=== PATIENT | male | born 1955 | race Caucasian/White ===

== ENCOUNTER 2017-08-09 08:17 | Inpatient (IN) | payer OTHER ==
[~2017-08-09] VITALS: Ht 177.8 cm; Wt 72.1 kg
[2017-08-09] MEDS ORDERED: SODIUM CHLORIDE 0.9% 1000ML 1,000 ML IV STA (08:32)
[2017-08-09] MEDS ORDERED: HYDRALAZINE HCL 20 MG/ML VIAL IV STA (09:00)
--- NOTE | 2017-08-09 09:24 | Diagnostic Imaging Report ---
EXAMINATION: Head CT HISTORY: Altered mental status for the last 2 days, evaluate for stroke COMPARISON: None. TECHNIQUE: Multidetector axial images were obtained without contrast from the foramen magnum to the vertex . The images were reconstructed using brain and bone algorithms. Thin section brain images were reformatted into coronal and sagittal planes. Intravenous contrast: None. Motion/streaking artifact limits the evaluation of the skull base and posterior cranial fossa. FINDINGS: Parenchyma: 1. Few scattered white matter hypodensities, likely nonspecific chronic microvascular ischemic changes. Focal cortical encephalomalacia in the right middle/inferior frontal gyri, likely sequela from remote infarct. 2. No mass or hemorrhage. No CT evidence of acute territorial vascular insult. Extra-axial spaces:No abnormal density. No extra-axial fluid collections Brain volume: Normal for age. Ventricles: No hydrocephalus or displacement. Arteries: No density suggestive of thrombus. Dural sinuses: No abnormal density. Extra-axial spaces: No abnormal density. Foramen magnum: No mass, Chiari malformation, or basilar invagination. Sella: No obvious mass. Paranasal/mastoid sinuses: Hypo pneumatization and sclerosis with partial opacification of the left mastoids are cells, likely related to chronic inflammatory process. Minimal chronic decompression of the right lamina papyracea, likely sequela from remote trauma. Skull/Scalp: No lytic or blastic lesions. No fractures. IMPRESSION: 1. No acute intracranial hemorrhage or CT evidence of acute territorial cortical vascular insult. 2. Mild chronic microvascular ischemic changes. 3. Small chronic cortical infarct in the right frontal lobe. Signed by: Dr. Sydney Wheeler M.D. on 08/09/2017 9:21 AM
[2017-08-09 09:39] LABS: BASOPHILS # (AUTO) 0.2 (0.0-0.1); BASOPHILS % 2.1 % (0.0-1.0); EOSINOPHILS # (AUTO) 0.4 (0.0-0.4); EOSINOPHILS % 3.4 % (0.0-6.0); HEMATOCRIT 42.1 % (38.2-49.6); HEMOGLOBIN 15.2 g/dL (14.0-18.0); LYMPHOCYTES # (AUTO) 1.5 (1.0-3.2); LYMPHOCYTES % 13.3 % (18.0-39.1); MEAN CORPUSCULAR HEMOGLOBIN 35.1 pg (28-32); MEAN CORPUSCULAR HGB CONC 36.1 g/dL (31-35); MEAN CORPUSCULAR VOLUME 97.2 fL (81-99); MONOCYTES # (AUTO) 1.1 (0.2-0.8); MONOCYTES % 10.4 % (4.4-11.3); NEUTROPHILS # (AUTO) 7.6 (2.1-6.9); NEUTROPHILS % 69.6 % (38.7-80.0); PLATELET COUNT 246 x10e3/uL (140-360); RED BLOOD COUNT 4.33 x10e6/uL (4.3-5.7)
--- NOTE | 2017-08-09 09:47 | Diagnostic Imaging Report ---
EXAMINATION: CT of the cervical spine HISTORY: Altered mental status, evaluate for spine fractures. COMPARISON: None available TECHNIQUE: Multidetector helical axial images were obtained without contrast from the foramen magnum to T1. The images were reconstructed using bone and soft tissue algorithms and were viewed in axial, sagittal and coronal planes. FINDINGS: Alignment: Age indeterminate likely chronic grade 1 spondylolisthesis at C6-C7, perhaps sequela from remote trauma. Soft tissues: Dilatation of the right laryngeal ventricle and right piriform sinus with medialization of the right AE fold, may be related to vocal cord paralysis on the right side. Fullness of the left nasopharynx, correlation with physical examination and a nonemergent ENT evaluation is recommended. Vertebrae: Chronic anterior wedging of the T7 vertebral body with decreased vertebral body height anteriorly by approximately 20%, no posterior retropulsion or canal stenosis. Mild associated kyphotic malalignment. Degenerative changes: C1-C2: Normal. C2-C3: Normal. C3-C4: Disc osteophyte, uncovertebral and facet arthrosis. Mild right and moderate left foraminal stenoses. C4-C5: Disc osteophyte on the differential, uncovertebral and facet arthrosis. Severe left foraminal stenosis. C5-C6: Disc osteophyte complex formation, uncovertebral and facet arthrosis. Mild bilateral foraminal stenoses worse on the left. C6-C7: Mild symmetric disc bulge, left lateral interbody bridging osteophyte and prominent facet arthrosis on the left with probably chronic-healed fracture-subluxation, likely sequela from remote trauma. There is no associated canal or foraminal stenoses. C7-T1: Normal. IMPRESSION: 1. No acute fractures or dislocations. 2. Anterior wedging of the C7 vertebral body and changes in the left C6-C7 facet, likely the sequela from remote trauma as detailed above. Comparison to prior studies is recommended 3. Moderate to severe left foraminal stenoses at C3-C4 and C4-C5. 4. Partially visualized fullness of the left nasopharynx, a nonemergent ENT evaluation is recommended. Note: Acute postraumatic spinal cord, vascular or ligamentous injuries cannot adequately be assessed by CT. Signed by: Dr. Sydney Wheeler M.D. on 08/09/2017 9:44 AM
[2017-08-09 09:49] LABS: CLARITY,URINE CLEAR (CLEAR); COLOR,URINE YELLOW (YELLOW); KETONES,URINE 2+ (NEGATIVE); LEUKOCYTE ESTERASE ,URINE NEGATIVE (NEGATIVE); NITRITE,URINE NEGATIVE (NEGATIVE); PROTEIN,URINE DIPSTICK 1+ (NEGATIVE); URINE UROBILINOGEN 1 mg/dL (0.2 - 1)
[2017-08-09 09:50] LABS: BILIRUBIN,URINE 1+ (NEGATIVE)
[2017-08-09 09:53] LABS: INR 0.91; PROTHROMBIN TIME 11.5 seconds (11.9-14.5)
[2017-08-09 09:54] LABS: PARTIAL THROMBOPLASTIN TIME 30.3 seconds (23.8-35.5)
[2017-08-09 09:59] LABS: ALANINE AMINOTRANSFERASE 15 IU/L (0-55); ALBUMIN 4.6 g/dL (3.5-5.0); ALBUMIN/GLOBULIN RATIO 1.5 (0.8-2.0); ALKALINE PHOSPHATASE 57 IU/L (40-150); AMYLASE 40 U/L (25-125); ANION GAP 18.4 mmol/L (8-16); BLOOD UREA NITROGEN 9 mg/dL (7-26); BUN/CREATININE RATIO 9 (6-25); CALCIUM 9.7 mg/dL (8.4-10.2); CARBON DIOXIDE 23 mmol/L (22-29); CHLORIDE 89 mmol/L (98-107); CREATINE KINASE 151 IU/L (30-200); CREATININE, SERUM 0.98 mg/dL (0.72-1.25); EST GLOMERULAR FILTRATION RATE > 60 ML/MIN (60-); GLUCOSE 88 mg/dL (74-118); LIPASE 32 U/L (8-78); POTASSIUM 4.4 mmol/L (3.5-5.1); SODIUM 126 mmol/L (136-145)
[2017-08-09 10:16] LABS: BACTERIA,URINE FEW /HPF; EPITHELIAL CELLS,URINE FEW /LPF; HYALINE CASTS 0-1 (0-1); RBC,URINE 0-5 /HPF (0-5); WBC,URINE (MAN) 0-5 /HPF (0-5)
[2017-08-09] MEDS ORDERED: LORAZEPAM INJ 2 MG/ML VIAL IV ONE (10:45)
[2017-08-09 11:02] LABS: AMPHETAMINES SCREEN,URINE NEGATIVE (NEGATIVE); BENZODIAZEPINES SCREEN,URINE NEGATIVE (NEGATIVE); PHENCYCLIDINE SCREEN,URINE NEGATIVE (NEGATIVE)
[2017-08-09] MEDS ORDERED: LORAZEPAM INJ 2 MG/ML VIAL IM SCH (12:00)
[2017-08-09] MEDS ORDERED: ONDANSETRON HCL INJ 2 MG/ML VIAL IV PRN (12:00)
[2017-08-09] MEDS: SODIUM CHLORIDE 0.9% 1000ML 1,000 ML IV SCH ×2 (12:29→22:37)
--- NOTE | 2017-08-09 14:01 | Diagnostic Imaging Report ---
EXAMINATION: MRI of the brain without contrast. HISTORY: Evaluate for acute stroke COMPARISON: Head CT on 08/09/2017 TECHNIQUE: Sagittal T2; axial DWI, T2, FLAIR, T1-IR, T2 gradient echo; coronal FLAIR. IMAGE QUALITY: Motion artifact limits evaluation of most of the sequences.. FINDINGS: Parenchyma: 1. Multiple peripheral cortico-subcortical areas of restricted diffusion in the bilateral middle frontal gyri and left frontal centrum semiovale, consistent with acute ischemic cortical watershed infarcts. 2. Chronic cortical infarct in the right middle frontal gyrus. 3. Scatter and mildly confluent periventricular white matter T2 and FLAIR hyperintense foci, most likely nonspecific chronic microvascular ischemic changes. 4. No mass or hemorrhage. Skull: Unremarkable. Vessels: Expected flow voids present in the major arteries and dural sinuses. Extra-axial spaces: No abnormal signal intensity or mass effect. Brain volume: Within normal limits for age. Ventricles: No hydrocephalus or displacement. Foramen magnum: Unremarkable. Sella: Unremarkable. Paranasal / mastoid sinuses: Opacification of the left mastoid air cells and middle ear, likely effusion/chronic inflammatory process is again noted. IMPRESSION: 1. Multiple acute small cortical infarcts in the bilateral frontal lobes without hemorrhagic conversion or significant mass effect. No midline shift. 2. Chronic right frontal infarct. 3. Mild chronic microvascular ischemic changes. Signed by: Dr. Sydney Wheeler M.D. on 08/09/2017 1:58 PM
[2017-08-09 14:06] VITALS: BP 134/70
[2017-08-09] MEDS ORDERED: HYDRALAZINE HCL 20 MG/ML VIAL IV PRN (15:30)
[2017-08-09] MEDS ORDERED: SYMBICORT 16010.2 GM (16:24)
[2017-08-09] MEDS ORDERED: LOSARTAN POTAS100 MG PO (16:24)
[2017-08-09 16:32] VITALS: BP 146/78
[2017-08-09 16:44] VITALS: BP 146/78
[2017-08-09 20:00] VITALS: BP 150/75
[2017-08-10] VITALS: BP 157/73
[2017-08-10] MEDS ORDERED: LORAZEPAM INJ 2 MG/ML VIAL IM SCH
[2017-08-10 00:29] LABS: BASOPHILS # (AUTO) 0.2 (0.0-0.1); BASOPHILS % 2.3 % (0.0-1.0); EOSINOPHILS # (AUTO) 0.5 (0.0-0.4); EOSINOPHILS % 4.9 % (0.0-6.0); HEMATOCRIT 36.5 % (38.2-49.6); HEMOGLOBIN 13.6 g/dL (14.0-18.0); LYMPHOCYTES # (AUTO) 1.9 (1.0-3.2); LYMPHOCYTES % 19.5 % (18.0-39.1); MEAN CORPUSCULAR HEMOGLOBIN 35.6 pg (28-32); MEAN CORPUSCULAR HGB CONC 37.3 g/dL (31-35); MEAN CORPUSCULAR VOLUME 95.5 fL (81-99); MONOCYTES % 10.6 % (4.4-11.3); NEUTROPHILS % 61.9 % (38.7-80.0); PLATELET COUNT 219 x10e3/uL (140-360); RED BLOOD COUNT 3.82 x10e6/uL (4.3-5.7); RED CELL DISTRIBUTION WIDTH 12.9 % (11.7-14.4)
[2017-08-10 00:43] LABS: ANION GAP 13.8 mmol/L (8-16); BLOOD UREA NITROGEN 13 mg/dL (7-26); BUN/CREATININE RATIO 15 (6-25); CALCIUM 8.9 mg/dL (8.4-10.2); CARBON DIOXIDE 21 mmol/L (22-29); CHLORIDE 99 mmol/L (98-107); CHOLESTEROL 137 MD/DL (0-199); CREATININE, SERUM 0.84 mg/dL (0.72-1.25); EST GLOMERULAR FILTRATION RATE > 60 ML/MIN (60-); GLUCOSE 91 mg/dL (74-118); HDL CHOLESTEROL 46 MG/DL (40-60); LDL CHOLESTEROL 75 MG/DL (60-130); POTASSIUM 3.8 mmol/L (3.5-5.1); SODIUM 130 mmol/L (136-145); TRIGLYCERIDES 78 MG/DL (0-149)
[2017-08-10 01:03] LABS: FREE T4 (FREE THYROXINE) 0.82 ng/dL (0.9-1.8); THYROID STIMULATING HORMONE 2.169 uIU/mL (0.350-4.940)
[2017-08-10 01:05] LABS: B-TYPE NATRIURETIC PEPTIDE2 127.5 pg/mL (0-100)
[2017-08-10 01:40] LABS: BLOOD UREA NITROGEN 13 mg/dL (7-26); GLUCOSE 91 mg/dL (74-118); OSMOLALITY,SERUM 260 mOsm/kg (278-305); SODIUM 130 mmol/L (136-145)
[2017-08-10 04:00] VITALS: BP 184/97
[2017-08-10] MEDS: SODIUM CHLORIDE 0.9% 1000ML 1,000 ML IV SCH (04:15)
[2017-08-10 06:09] LABS: BASOPHILS # (AUTO) 0.2 (0.0-0.1); BASOPHILS % 2.9 % (0.0-1.0); EOSINOPHILS # (AUTO) 0.5 (0.0-0.4); EOSINOPHILS % 5.8 % (0.0-6.0); HEMATOCRIT 37.1 % (38.2-49.6); HEMOGLOBIN 13.5 g/dL (14.0-18.0); LYMPHOCYTES # (AUTO) 1.7 (1.0-3.2); LYMPHOCYTES % 20.4 % (18.0-39.1); MEAN CORPUSCULAR HEMOGLOBIN 35.3 pg (28-32); MEAN CORPUSCULAR HGB CONC 36.4 g/dL (31-35); MEAN CORPUSCULAR VOLUME 97.1 fL (81-99); MONOCYTES # (AUTO) 0.9 (0.2-0.8); MONOCYTES % 10.9 % (4.4-11.3); NEUTROPHILS # (AUTO) 4.9 (2.1-6.9); NEUTROPHILS % 59.2 % (38.7-80.0); PLATELET COUNT 212 x10e3/uL (140-360); RED BLOOD COUNT 3.82 x10e6/uL (4.3-5.7)
[2017-08-10 06:28] LABS: ALANINE AMINOTRANSFERASE 12 IU/L (0-55); ALBUMIN 3.7 g/dL (3.5-5.0); ALBUMIN/GLOBULIN RATIO 1.5 (0.8-2.0); ALKALINE PHOSPHATASE 45 IU/L (40-150); ANION GAP 12.8 mmol/L (8-16); BLOOD UREA NITROGEN 10 mg/dL (7-26); BUN/CREATININE RATIO 12 (6-25); CALCIUM 8.9 mg/dL (8.4-10.2); CARBON DIOXIDE 23 mmol/L (22-29); CHLORIDE 101 mmol/L (98-107); CREATININE, SERUM 0.81 mg/dL (0.72-1.25); EST GLOMERULAR FILTRATION RATE > 60 ML/MIN (60-); GLUCOSE 90 mg/dL (74-118); POTASSIUM 3.8 mmol/L (3.5-5.1); SODIUM 133 mmol/L (136-145)
[2017-08-10] MEDS: ASPIRIN 325 MG TAB EC PO SCH (08:00)
[2017-08-10] MEDS: FAMOTIDINE 20 MG TAB PO SCH ×2 (08:00→18:37)
[2017-08-10 08:53] VITALS: BP 175/102
--- NOTE | 2017-08-10 09:18 | Consultation ---
DATE OF CONSULTATION: August 10, 2017, at 8:30 in the morning NEUROLOGICAL CONSULTATION ATTENDING PHYSICIAN: Dr. Daniel REASON FOR CONSULTATION: Stroke. This is a 62-year-old male who apparently, according to the chart as no family member is present, has been having some trouble ambulating and some trouble with speech for a little while. They brought him to the emergency room with the possibility of a diagnosis of a stroke. The patient has been admitted with confusion and slurred speech. PAST HISTORY: Hypertension. SURGERY: Appendectomy. ALLERGIES: NONE KNOWN. FAMILY AND SOCIAL HISTORY: Parents are . He has only a brother. He lives alone. He is not . He smokes. He says he drinks 3 beers a day. REVIEW OF SYSTEMS: All 12 steps negative except as described above. GENERAL PHYSICAL EXAMINATION VITAL SIGNS: Blood pressure 184/97, pulse 76, temperature 96.5. LUNGS: Clear to auscultation. HEART: Regular sinus rhythm. No murmur. ABDOMEN: Soft and nontender. No organomegaly. MUSCULOSKELETAL: Lower extremities have no edema. There is no cyanosis and no clubbing. NEUROLOGIC EXAMINATION MENTAL STATUS: He is sitting, alert. His speech is very dysarthric. He is disoriented times 3. He knows he is in the hospital. He does not know the name. He says he lives in [place], but he does not give me the address. CRANIAL NERVES: Pupils are small with sluggish reaction. The extraocular movements are full. Visual samuel are normal. No facial weakness. Palatal movement is normal. MOTOR POWER: He moves all 4 extremities symmetrically. No evidence of weakness in the proximal or distal muscles. PLANTAR STIMULATION: Down bilaterally. DEEP TENDON REFLEXES: Triceps, biceps and radials are 1+. Knee jerks are 1+. Ankle jerks are absent. GAIT: A little bit broad based and unsteady. LABORATORY WORKUP: CBC shows a white count of 8250 with a hemoglobin of 13.5, hematocrit 37.1, platelets 212,000. Chemistry: Sodium, potassium, chloride were within the normal range. BUN 10, creatinine 0.82, estimated GFR greater than 60. Liver enzymes are normal. Toxicology is negative. Alcohol is less than 10. Influenza types A, B, and Ag negative. Urinalysis: Presence of protein 1+, ketones 2+, WBCs 0-5, bacteria few. IMAGING: MRI of the brain without contrast showed multiple small cortical infarcts of both frontal areas. No evidence of mass effect. No evidence of bleeding. Cavities are normal size. IMPRESSION 1. Cortical infarction in both frontal areas. 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 The patient has been scheduled for echocardiogram and carotid Doppler, and these reports are pending. 2. Hypertension. RECOMMENDATIONS: PT. Recommendation for speech therapy. Continue with aspirin. Job#: [id number]
[2017-08-10] MEDS: LOSARTAN POTASSIUM 100 MG TAB PO SCH (10:30)
[2017-08-10 10:33] LABS: EOSINOPHILS % (MANUAL) 4 % (0-7); LYMPHOCYTES % (MANUAL) 16 % (19-48); MONOCYTES % (MANUAL) 9 % (3.4-9.0); NEUTROPHILS % (MANUAL) 71 % (40-74); PLATELET ESTIMATE ADEQUATE; PLATELET MORPHOLOGY COMMENT FEW LARGE; RBC MORPHOLOGY COMMENT NORMAL
[2017-08-10 12:00] VITALS: BP 188/92
[2017-08-10] MEDS: ALBUTEROL/IPRATROPIUM 3 ML NEB NEB SCH ×2 (12:40→20:00)
[2017-08-10] MEDS: ACETAMINOPHEN 325 MG TAB PO PRN (15:16)
[2017-08-10] MEDS: LORAZEPAM INJ 2 MG/ML VIAL IM SCH (15:55)
[2017-08-10 16:45] VITALS: BP 154/88
[2017-08-10 20:00] VITALS: BP 192/98
[2017-08-10] MEDS: ATORVASTATIN 20 MG TAB PO SCH (21:42)
[2017-08-11] VITALS (7 sets, daily range): BP systolic 110–196; BP diastolic 68–100
[2017-08-11] MEDS: ALBUTEROL/IPRATROPIUM 3 ML NEB NEB SCH ×4 (00:45→20:30)
[2017-08-11] MEDS: LORAZEPAM INJ 2 MG/ML VIAL IM SCH (03:14)
[2017-08-11] MEDS: CLONIDINE HCL 0.1 MG TAB PO PRN ×2 (04:27→12:50)
[2017-08-11 06:06] LABS: BASOPHILS # (AUTO) 0.2 (0.0-0.1); BASOPHILS % 2.5 % (0.0-1.0); EOSINOPHILS # (AUTO) 0.5 (0.0-0.4); EOSINOPHILS % 5.5 % (0.0-6.0); HEMATOCRIT 36.2 % (38.2-49.6); HEMOGLOBIN 12.9 g/dL (14.0-18.0); LYMPHOCYTES # (AUTO) 1.7 (1.0-3.2); LYMPHOCYTES % 20.4 % (18.0-39.1); MEAN CORPUSCULAR HEMOGLOBIN 35.6 pg (28-32); MEAN CORPUSCULAR HGB CONC 35.6 g/dL (31-35); MONOCYTES # (AUTO) 0.8 (0.2-0.8); MONOCYTES % 9.9 % (4.4-11.3); NEUTROPHILS # (AUTO) 5.2 (2.1-6.9); NEUTROPHILS % 60.9 % (38.7-80.0); PLATELET COUNT 202 x10e3/uL (140-360); RED BLOOD COUNT 3.62 x10e6/uL (4.3-5.7); RED CELL DISTRIBUTION WIDTH 13.1 % (11.7-14.4)
[2017-08-11 06:33] LABS: ANION GAP 11.9 mmol/L (8-16); BLOOD UREA NITROGEN 8 mg/dL (7-26); BUN/CREATININE RATIO 9 (6-25); CALCIUM 9.2 mg/dL (8.4-10.2); CARBON DIOXIDE 26 mmol/L (22-29); CHLORIDE 100 mmol/L (98-107); CREATININE, SERUM 0.87 mg/dL (0.72-1.25); EST GLOMERULAR FILTRATION RATE > 60 ML/MIN (60-); GLUCOSE 111 mg/dL (74-118); POTASSIUM 3.9 mmol/L (3.5-5.1); SODIUM 134 mmol/L (136-145)
[2017-08-11] MEDS ORDERED: LIPITOR20 MG PO (06:56)
[2017-08-11] MEDS ORDERED: NIFEDIPINE ER30 M1 PO (06:56)
[2017-08-11] MEDS ORDERED: CATAPRES0.1 MG PO (06:56)
[2017-08-11] MEDS ORDERED: ASPIRIN ENTERI325 MG PO (06:56)
[2017-08-11 07:45] LABS: ANISOCYTOSIS SLIGHT; BLAST CELLS % MANUAL 1; EOSINOPHILS % (MANUAL) 7 % (0-7); HYPOCHROMASIA SLIGHT; LYMPHOCYTES % (MANUAL) 13 % (19-48); MONOCYTES % (MANUAL) 10 % (3.4-9.0); NEUTROPHILS % (MANUAL) 62 % (40-74); PLATELET ESTIMATE ADEQUATE; PLATELET MORPHOLOGY COMMENT NORMAL; RBC MORPHOLOGY COMMENT NORMAL
[2017-08-11] MEDS: NIFEDIPINE CR 30 MG TAB PO SCH (08:50)
[2017-08-11] MEDS: FAMOTIDINE 20 MG TAB PO SCH ×2 (08:50→17:26)
[2017-08-11] MEDS: ASPIRIN 325 MG TAB EC PO SCH (08:50)
[2017-08-11] MEDS: LOSARTAN POTASSIUM 100 MG TAB PO SCH (08:50)
[2017-08-11] MEDS: BUDESONIDE/FORMOTEROL 160/4.5MCG INHALER INH SCH ×2 (09:00→20:30)
[2017-08-11] MEDS ORDERED: HALOPERIDOL LACTATE 5 MG/ML VIAL IM PRN (15:30)
--- NOTE | 2017-08-11 15:50 | Consultation ---
DATE OF CONSULTATION: August 11, 2017 PSYCHIATRIC CONSULTATION REASON FOR CONSULTATION: Evaluate the patient's agitation. HISTORY OF PRESENT ILLNESS: Patient is a 62-year-old male admitted to the hospital for weakness. Psychiatric consultation is called to evaluate the patient's psychosis. As per medical record, the patient has a history of hypertension. Family members brought the patient to the ER for weakness and possible diagnosis of stroke. The patient was admitted for confusion and slurred speech. CT scan shows mild chronic cortical infarction. Upon evaluation today, the patient was found to be in his room sitting in a chair with his sitter nearby. He is alert, awake and oriented to self. He is confused. Does not know where he is. He is calm at this time. He denies any depression, anxiety. He states feeling pretty good. He denies any hallucinations. He denies any feelings of hopeless or helplessness. He denies any appetite issues. He complains of slurred speech. As per sitter, the patient has been restless and trying to get out of the room. He has not been combative. As per nursing staff, the patient has been intermittently restless. The patient is getting Ativan 1 mg IM q.12 h. scheduled. PAST PSYCHIATRIC HISTORY: As per medical record, the patient does not appear to have any past psychiatric history. He denies suicide attempts. He denies alcohol and drug use. FAMILY HISTORY: The patient denies. SOCIAL HISTORY: The patient states he lives alone. MENTAL STATUS EXAMINATION GENERAL: The patient is an elderly male. He is alert, awake and oriented to self. He is confused. Intermittently restless. Mood is anxious. Affect is blunt. Psychomotor state is restless. Thought process is confused. Thought content is not elicited for paranoia or delusional thinking. Denies any suicidal or homicidal ideation. Insight and judgment are poor. Memory appears to be grossly impaired. CURRENT MEDICATIONS: Albuterol, clonidine, budesonide, nifedipine, losartan, famotidine, aspirin, Ativan 1 mg IM q.12 h. scheduled, atorvastatin, acetaminophen, Zofran p.r.n. IV. CURRENT LABS: WBC 8.48, RBC 3.62, hemoglobin 12.9, hematocrit 36.2, and platelets 202,000. Chemistry: Sodium 134, potassium 3.9, chloride 100, CO2 26, BUN 8, creatinine 0.87. ASSESSMENT: Unspecified psychosis. PLAN: Adjust Ativan 1 mg IM q.12 h. Add Ativan 0.5 mg p.o. q.12 h. Add Ativan 0.5 mg p.o. q.6 h. p.r.n. Add Seroquel 25 mg p.o. q.6 h. p.r.n. Add Haldol 1 mg IM q.6 h. p.r.n. Monitor for agitation and mood. Thank you for this consultation. DICTATED BY RADHA PÉREZ Job#: [id number] RI
[2017-08-11] MEDS ORDERED: HYDROCHLOROTHIAZIDE 25 MG TAB PO SCH (16:45)
[2017-08-11] MEDS: LORAZEPAM 0.5 MG TAB PO SCH (17:26)
[2017-08-11] MEDS: LISINOPRIL 10 MG TAB PO SCH (17:26)
[2017-08-11] MEDS: ACETAMINOPHEN 325 MG TAB PO PRN (17:28)
[2017-08-11] MEDS ORDERED: SODIUM CHLORIDE 0.9% 50ML 50 ML ONE (17:32)
[2017-08-11] MEDS ORDERED: IOPAMIDOL 370 MG/ML 200 ML INFUS..BTL INJ ONE (17:32)
--- NOTE | 2017-08-11 21:28 | Diagnostic Imaging Report ---
History: Carotid stenosis Comparison studies:Carotid Doppler 08/09/2017 Technique: Axial images were obtained from the thoracic inlet. Coronal and sagittal images reconstructed from the axial data. Intravenous contrast: 100 cc of Omnipaque 300. Findings: Percentage of stenosis will be based on the NASCET criteria. Aortic arch and major vessels: Patent. Atherosclerotic calcifications results in mild stenosis of the distal arch. Calcified and noncalcified plaque at the left subclavian artery origin results in moderate stenosis. Common carotid arteries: Patent. Nonstenotic atherosclerotic calcifications. Right internal carotid artery: Occluded with calcified and noncalcified plaque, distal reconstitution of the ophthalmic internal carotid artery and [place] by the posterior communicating artery. Left internal carotid artery: Occluded with calcified and noncalcified plaque, distal reconstitution of the ophthalmic internal carotid artery and [place] by the posterior communicating artery Right vertebral artery: Patent. Nonstenotic atherosclerotic calcifications. Left vertebral artery: Patent. Nonstenotic atherosclerotic calcifications. Bilateral apical paraseptal emphysematous changes. 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 Moderate stenosis of the left subclavian artery origin. Nonstenotic atherosclerotic calcifications of the remaining vessels Signed by: DR Sammy Recinos M.D. on 08/11/2017 10:45 PM
[2017-08-11] MEDS: ATORVASTATIN 20 MG TAB PO SCH (21:42)
[2017-08-11] MEDS: QUETIAPINE FUMARATE 25 MG TAB PO PRN (23:20)
[2017-08-12] VITALS: BP_SYST 129; BP_SYST 136; BP_DIAS 80; BP_DIAS 92
[2017-08-12] MEDS: ALBUTEROL/IPRATROPIUM 3 ML NEB NEB SCH ×4 (00:30→20:30)
[2017-08-12] MEDS: LORAZEPAM 0.5 MG TAB PO PRN (00:42)
[2017-08-12 01:54] VITALS: BP 129/92
[2017-08-12 03:30] LABS: BASOPHILS # (AUTO) 0.3 (0.0-0.1); EOSINOPHILS # (AUTO) 0.7 (0.0-0.4); EOSINOPHILS % 8.1 % (0.0-6.0); HEMATOCRIT 35.2 % (38.2-49.6); HEMOGLOBIN 13.1 g/dL (14.0-18.0); LYMPHOCYTES # (AUTO) 1.3 (1.0-3.2); LYMPHOCYTES % 15.2 % (18.0-39.1); MEAN CORPUSCULAR HEMOGLOBIN 35.4 pg (28-32); MEAN CORPUSCULAR HGB CONC 37.2 g/dL (31-35); MEAN CORPUSCULAR VOLUME 95.1 fL (81-99); MONOCYTES # (AUTO) 0.7 (0.2-0.8); MONOCYTES % 8.4 % (4.4-11.3); NEUTROPHILS # (AUTO) 5.4 (2.1-6.9); NEUTROPHILS % 64.7 % (38.7-80.0); PLATELET COUNT 196 x10e3/uL (140-360)
[2017-08-12 03:44] LABS: ANION GAP 11.8 mmol/L (8-16); BLOOD UREA NITROGEN 8 mg/dL (7-26); BUN/CREATININE RATIO 8 (6-25); CALCIUM 9.5 mg/dL (8.4-10.2); CARBON DIOXIDE 23 mmol/L (22-29); CHLORIDE 96 mmol/L (98-107); EST GLOMERULAR FILTRATION RATE > 60 ML/MIN (60-); GLUCOSE 109 mg/dL (74-118); MAGNESIUM 1.7 MG/DL (1.3-2.1); POTASSIUM 3.8 mmol/L (3.5-5.1)
[2017-08-12 04:05] LABS: SODIUM 127 mmol/L (136-145)
[2017-08-12 04:10] VITALS: BP 122/84
[2017-08-12] MEDS: LORAZEPAM INJ 2 MG/ML VIAL IM PRN (05:57)
[2017-08-12] MEDS: BUDESONIDE/FORMOTEROL 160/4.5MCG INHALER INH SCH ×2 (07:00→19:00)
[2017-08-12 08:46] VITALS: BP 136/88
[2017-08-12] MEDS: FAMOTIDINE 20 MG TAB PO SCH ×2 (08:59→16:54)
[2017-08-12] MEDS: ASPIRIN 325 MG TAB EC PO SCH (08:59)
[2017-08-12] MEDS: LISINOPRIL 10 MG TAB PO SCH (08:59)
[2017-08-12] MEDS: LORAZEPAM 0.5 MG TAB PO SCH ×2 (08:59→16:54)
[2017-08-12] MEDS: LOSARTAN POTASSIUM 100 MG TAB PO SCH (08:59)
[2017-08-12] MEDS: NIFEDIPINE CR 30 MG TAB PO SCH (09:01)
--- NOTE | 2017-08-12 10:21 | Progress Note ---
DATE: August 12, 2017 PSYCHIATRIC PROGRESS NOTE The patient is in the room sitting in the chair. He is calm at this time and pleasant and cooperative. Speech is somewhat garbled. He has a sitter nearby. The patient apparently received multiple p.r.n. IM medications last night. He was trying to get out of bed. He is not sleeping as per nursing staff. He is medically cleared. Still has some cardiology issues that need to be resolved. The plan is from the nursing staff is that he will be discharged to assisted facility. Daytime nursing staff reported the patient is doing very well and not combative. 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 PLAN: Add Seroquel 25 mg p.o. at bedtime. Continue with Seroquel 25 mg p.o. q.6 h. p.r.n. Continue with Haldol p.r.n. IM. Continue with Ativan 0.5 mg p.o. b.i.d. Continue with Ativan p.r.n. IM. Monitor for agitation. DICTATED BY RADHA PÉREZ Job#: [id number] RAGINI
[2017-08-12 20:00] VITALS: BP 136/80
[2017-08-12] MEDS: QUETIAPINE FUMARATE 25 MG TAB PO SCH (20:17)
[2017-08-12] MEDS: ATORVASTATIN 20 MG TAB PO SCH (20:17)
[2017-08-12 21:05] VITALS: BP 136/80
[2017-08-13] VITALS (8 sets, daily range): BP systolic 112–156; BP diastolic 65–98
[2017-08-13] MEDS: ALBUTEROL/IPRATROPIUM 3 ML NEB NEB SCH ×4 (01:00→19:00)
[2017-08-13] MEDS: QUETIAPINE FUMARATE 25 MG TAB PO PRN (02:38)
[2017-08-13 03:16] LABS: BASOPHILS # (AUTO) 0.2 (0.0-0.1); BASOPHILS % 2.8 % (0.0-1.0); EOSINOPHILS # (AUTO) 0.6 (0.0-0.4); EOSINOPHILS % 7.9 % (0.0-6.0); HEMATOCRIT 37.5 % (38.2-49.6); HEMOGLOBIN 13.6 g/dL (14.0-18.0); LYMPHOCYTES # (AUTO) 1.8 (1.0-3.2); LYMPHOCYTES % 21.7 % (18.0-39.1); MEAN CORPUSCULAR HGB CONC 36.3 g/dL (31-35); MEAN CORPUSCULAR VOLUME 96.4 fL (81-99); MONOCYTES # (AUTO) 1.1 (0.2-0.8); NEUTROPHILS # (AUTO) 4.4 (2.1-6.9); PLATELET COUNT 209 x10e3/uL (140-360); RED BLOOD COUNT 3.89 x10e6/uL (4.3-5.7)
[2017-08-13 03:34] LABS: ANION GAP 12.7 mmol/L (8-16); BLOOD UREA NITROGEN 10 mg/dL (7-26); BUN/CREATININE RATIO 10 (6-25); CALCIUM 9.6 mg/dL (8.4-10.2); CARBON DIOXIDE 23 mmol/L (22-29); CHLORIDE 97 mmol/L (98-107); CREATININE, SERUM 1.03 mg/dL (0.72-1.25); EST GLOMERULAR FILTRATION RATE > 60 ML/MIN (60-); GLUCOSE 102 mg/dL (74-118); MAGNESIUM 1.9 MG/DL (1.3-2.1); POTASSIUM 3.7 mmol/L (3.5-5.1); SODIUM 129 mmol/L (136-145)
[2017-08-13] MEDS: FAMOTIDINE 20 MG TAB PO SCH ×2 (07:30→17:04)
[2017-08-13] MEDS: BUDESONIDE/FORMOTEROL 160/4.5MCG INHALER INH SCH ×2 (07:30→19:00)
[2017-08-13] MEDS: LORAZEPAM 0.5 MG TAB PO SCH ×2 (09:31→17:04)
[2017-08-13] MEDS: DOCUSATE SODIUM 100 MG CAP PO SCH ×2 (09:31→17:04)
[2017-08-13] MEDS: LISINOPRIL 10 MG TAB PO SCH (09:31)
[2017-08-13] MEDS: LOSARTAN POTASSIUM 100 MG TAB PO SCH (09:31)
[2017-08-13] MEDS: NIFEDIPINE CR 30 MG TAB PO SCH (09:31)
[2017-08-13] MEDS: ASPIRIN 325 MG TAB EC PO SCH (09:31)
[2017-08-13] MEDS: POLYETHYLENE GLYCOL 3350 17 GM PACK PO SCH ×2 (09:32→17:04)
[2017-08-13] MEDS: ENOXAPARIN SOD INJ 40 MG/0.4 ML SYR SC SCH (17:04)
[2017-08-13] MEDS: ATORVASTATIN 20 MG TAB PO SCH (20:17)
[2017-08-13] MEDS: QUETIAPINE FUMARATE 25 MG TAB PO SCH (20:17)
[2017-08-14] VITALS (7 sets, daily range): BP systolic 117–172; BP diastolic 73–99
[2017-08-14] MEDS: ALBUTEROL/IPRATROPIUM 3 ML NEB NEB SCH ×4 (01:00→19:00)
[2017-08-14 05:02] LABS: BASOPHILS # (AUTO) 0.3 (0.0-0.1); BASOPHILS % 3.7 % (0.0-1.0); EOSINOPHILS # (AUTO) 0.6 (0.0-0.4); EOSINOPHILS % 7.8 % (0.0-6.0); HEMATOCRIT 37.3 % (38.2-49.6); HEMOGLOBIN 13.5 g/dL (14.0-18.0); LYMPHOCYTES # (AUTO) 1.7 (1.0-3.2); LYMPHOCYTES % 20.7 % (18.0-39.1); MEAN CORPUSCULAR HEMOGLOBIN 35.2 pg (28-32); MEAN CORPUSCULAR HGB CONC 36.2 g/dL (31-35); MEAN CORPUSCULAR VOLUME 97.4 fL (81-99); MONOCYTES # (AUTO) 1.3 (0.2-0.8); MONOCYTES % 15.4 % (4.4-11.3); NEUTROPHILS # (AUTO) 4.2 (2.1-6.9); NEUTROPHILS % 51.2 % (38.7-80.0); PLATELET COUNT 226 x10e3/uL (140-360); RED BLOOD COUNT 3.83 x10e6/uL (4.3-5.7)
[2017-08-14 05:41] LABS: ANION GAP 14.2 mmol/L (8-16); BLOOD UREA NITROGEN 12 mg/dL (7-26); BUN/CREATININE RATIO 11 (6-25); CALCIUM 9.6 mg/dL (8.4-10.2); CARBON DIOXIDE 24 mmol/L (22-29); CHLORIDE 97 mmol/L (98-107); CREATININE, SERUM 1.13 mg/dL (0.72-1.25); EST GLOMERULAR FILTRATION RATE > 60 ML/MIN (60-); GLUCOSE 95 mg/dL (74-118); MAGNESIUM 2.1 MG/DL (1.3-2.1); POTASSIUM 4.2 mmol/L (3.5-5.1); SODIUM 131 mmol/L (136-145)
[2017-08-14] MEDS: BUDESONIDE/FORMOTEROL 160/4.5MCG INHALER INH SCH ×2 (07:00→19:00)
[2017-08-14 07:25] LABS: EOSINOPHILS % (MANUAL) 6 % (0-7); LYMPHOCYTES % (MANUAL) 21 % (19-48); MONOCYTES % (MANUAL) 9 % (3.4-9.0); NEUTROPHILS % (MANUAL) 60 % (40-74)
[2017-08-14 07:27] LABS: ANISOCYTOSIS SLIGHT; PLATELET ESTIMATE ADEQUATE; PLATELET MORPHOLOGY COMMENT NORMAL; RBC MORPHOLOGY COMMENT NORMAL
[2017-08-14] MEDS: FAMOTIDINE 20 MG TAB PO SCH ×2 (07:30→16:40)
[2017-08-14] MEDS: ASPIRIN 325 MG TAB EC PO SCH (08:51)
[2017-08-14] MEDS: DOCUSATE SODIUM 100 MG CAP PO SCH ×2 (08:51→16:40)
[2017-08-14] MEDS: LORAZEPAM 0.5 MG TAB PO SCH ×2 (08:51→16:40)
[2017-08-14] MEDS: LOSARTAN POTASSIUM 100 MG TAB PO SCH (08:51)
[2017-08-14] MEDS: NIFEDIPINE CR 30 MG TAB PO SCH (08:51)
[2017-08-14] MEDS: POLYETHYLENE GLYCOL 3350 17 GM PACK PO SCH ×2 (08:51→16:40)
[2017-08-14] MEDS: LISINOPRIL 10 MG TAB PO SCH (08:51)
--- NOTE | 2017-08-14 16:06 | Diagnostic Imaging Report ---
PROCEDURE:US GUIDANCE FOR VASCULAR ACCESS COMPARISON:None. INDICATIONS:Not provided. FINDINGS:Ultrasound evaluation of potential access sites was performed. After successfully identifying a patent vessel, US guidance was used to puncture the vein. A permanent recording was created for the patient record. CONCLUSION:Successful IV access by Ultrasound guidance. Hussein Mckinney M.D. Dictated by: Hussein Mckinney M.D. on 08/14/2017 at 16:11 Electronically approved by: Hussein Mckinney M.D. on 08/14/2017 at 16:11
[2017-08-14] MEDS: ENOXAPARIN SOD INJ 40 MG/0.4 ML SYR SC SCH (16:40)
[2017-08-14] MEDS: ATORVASTATIN 20 MG TAB PO SCH (20:18)
[2017-08-14] MEDS: LORAZEPAM 0.5 MG TAB PO PRN (20:18)
[2017-08-14] MEDS: QUETIAPINE FUMARATE 25 MG TAB PO SCH (20:18)
[2017-08-15] MEDS: CLONIDINE HCL 0.1 MG TAB PO PRN (00:40)
[2017-08-15] MEDS: ALBUTEROL/IPRATROPIUM 3 ML NEB NEB SCH ×4 (01:00→19:40)
[2017-08-15 04:00] VITALS: BP 112/81
[2017-08-15 04:48] LABS: BASOPHILS # (AUTO) 0.3 (0.0-0.1); BASOPHILS % 3.9 % (0.0-1.0); EOSINOPHILS # (AUTO) 0.7 (0.0-0.4); EOSINOPHILS % 8.3 % (0.0-6.0); LYMPHOCYTES % 23.5 % (18.0-39.1); MEAN CORPUSCULAR HEMOGLOBIN 35.4 pg (28-32); MEAN CORPUSCULAR HGB CONC 36.1 g/dL (31-35); MEAN CORPUSCULAR VOLUME 98.1 fL (81-99); MONOCYTES # (AUTO) 1.2 (0.2-0.8); MONOCYTES % 14.7 % (4.4-11.3); NEUTROPHILS # (AUTO) 4.1 (2.1-6.9); PLATELET COUNT 218 x10e3/uL (140-360); RED BLOOD COUNT 3.67 x10e6/uL (4.3-5.7); RED CELL DISTRIBUTION WIDTH 12.8 % (11.7-14.4)
[2017-08-15 05:07] LABS: ANION GAP 13.5 mmol/L (8-16); CALCIUM 9.2 mg/dL (8.4-10.2); CREATININE, SERUM 1.26 mg/dL (0.72-1.25); MAGNESIUM 1.8 MG/DL (1.3-2.1); POTASSIUM 4.5 mmol/L (3.5-5.1)
[2017-08-15 06:06] LABS: ANISOCYTOSIS SLIGHT; BLAST CELLS % MANUAL 1; EOSINOPHILS % (MANUAL) 9 % (0-7); LYMPHOCYTES % (MANUAL) 32 % (19-48); MONOCYTES % (MANUAL) 14 % (3.4-9.0); NEUTROPHILS % (MANUAL) 42 % (40-74); PLATELET ESTIMATE ADEQUATE; PLATELET MORPHOLOGY COMMENT FEW LARGE; RBC MORPHOLOGY COMMENT NORMAL
[2017-08-15] MEDS: BUDESONIDE/FORMOTEROL 160/4.5MCG INHALER INH SCH ×2 (07:00→19:40)
[2017-08-15 08:45] VITALS: BP 146/80
[2017-08-15] MEDS: POLYETHYLENE GLYCOL 3350 17 GM PACK PO SCH ×2 (09:00→18:13)
[2017-08-15 09:02] VITALS: BP 146/80
[2017-08-15] MEDS: DOCUSATE SODIUM 100 MG CAP PO SCH ×2 (10:06→18:13)
[2017-08-15] MEDS: LORAZEPAM 0.5 MG TAB PO SCH ×2 (10:06→18:13)
[2017-08-15] MEDS: FAMOTIDINE 20 MG TAB PO SCH ×2 (10:06→18:13)
[2017-08-15] MEDS: ASPIRIN 325 MG TAB EC PO SCH (10:06)
[2017-08-15] MEDS: NIFEDIPINE CR 30 MG TAB PO SCH (10:07)
[2017-08-15] MEDS: LISINOPRIL 10 MG TAB PO SCH (10:07)
[2017-08-15] MEDS: LOSARTAN POTASSIUM 100 MG TAB PO SCH (10:07)
[2017-08-15 11:51] VITALS: BP 130/73
[2017-08-15 16:37] VITALS: BP 109/73
[2017-08-15] MEDS: ENOXAPARIN SOD INJ 40 MG/0.4 ML SYR SC SCH (18:13)
[2017-08-15 20:00] VITALS: BP 152/78
[2017-08-15] MEDS: QUETIAPINE FUMARATE 25 MG TAB PO SCH (20:11)
[2017-08-15] MEDS: ATORVASTATIN 20 MG TAB PO SCH (20:11)
[2017-08-16] VITALS (8 sets, daily range): BP systolic 139–166; BP diastolic 81–98
[2017-08-16] MEDS: LORAZEPAM 0.5 MG TAB PO PRN (00:20)
[2017-08-16] MEDS: ALBUTEROL/IPRATROPIUM 3 ML NEB NEB SCH ×4 (01:27→20:18)
[2017-08-16] MEDS: LORAZEPAM INJ 2 MG/ML VIAL IM PRN (02:30)
[2017-08-16] MEDS: ACETAMINOPHEN 325 MG TAB PO PRN ×2 (02:42→09:25)
[2017-08-16 04:40] LABS: BASOPHILS # (AUTO) 0.3 (0.0-0.1); EOSINOPHILS # (AUTO) 0.7 (0.0-0.4); EOSINOPHILS % 7.2 % (0.0-6.0); HEMATOCRIT 34.9 % (38.2-49.6); HEMOGLOBIN 12.9 g/dL (14.0-18.0); LYMPHOCYTES # (AUTO) 2.1 (1.0-3.2); LYMPHOCYTES % 21.4 % (18.0-39.1); MEAN CORPUSCULAR HEMOGLOBIN 35.8 pg (28-32); MEAN CORPUSCULAR VOLUME 96.9 fL (81-99); MONOCYTES # (AUTO) 1.2 (0.2-0.8); MONOCYTES % 12.2 % (4.4-11.3); NEUTROPHILS # (AUTO) 5.5 (2.1-6.9); NEUTROPHILS % 55.4 % (38.7-80.0); PLATELET COUNT 272 x10e3/uL (140-360); RED CELL DISTRIBUTION WIDTH 12.7 % (11.7-14.4)
[2017-08-16 04:57] LABS: ANION GAP 12.6 mmol/L (8-16); BLOOD UREA NITROGEN 15 mg/dL (7-26); BUN/CREATININE RATIO 13 (6-25); CALCIUM 9.5 mg/dL (8.4-10.2); CARBON DIOXIDE 25 mmol/L (22-29); CHLORIDE 97 mmol/L (98-107); CREATININE, SERUM 1.17 mg/dL (0.72-1.25); EST GLOMERULAR FILTRATION RATE > 60 ML/MIN (60-); GLUCOSE 101 mg/dL (74-118); PHOSPHORUS 3.9 MG/DL (2.3-4.7); POTASSIUM 4.6 mmol/L (3.5-5.1); SODIUM 130 mmol/L (136-145)
[2017-08-16 06:21] LABS: EOSINOPHILS % (MANUAL) 5 % (0-7); LYMPHOCYTES % (MANUAL) 25 % (19-48); MONOCYTES % (MANUAL) 8 % (3.4-9.0); NEUTROPHILS % (MANUAL) 60 % (40-74)
[2017-08-16 06:22] LABS: PLATELET ESTIMATE ADEQUATE; PLATELET MORPHOLOGY COMMENT NORMAL; RBC MORPHOLOGY COMMENT NORMAL
[2017-08-16] MEDS: BUDESONIDE/FORMOTEROL 160/4.5MCG INHALER INH SCH ×2 (07:20→21:16)
[2017-08-16] MEDS: FAMOTIDINE 20 MG TAB PO SCH ×2 (09:23→16:39)
[2017-08-16] MEDS: LORAZEPAM 0.5 MG TAB PO SCH ×2 (09:23→16:39)
[2017-08-16] MEDS: DOCUSATE SODIUM 100 MG CAP PO SCH ×2 (09:23→16:40)
[2017-08-16] MEDS: ASPIRIN 325 MG TAB EC PO SCH (09:23)
[2017-08-16] MEDS: LOSARTAN POTASSIUM 100 MG TAB PO SCH (09:24)
[2017-08-16] MEDS: POLYETHYLENE GLYCOL 3350 17 GM PACK PO SCH ×2 (09:24→16:40)
[2017-08-16] MEDS: NIFEDIPINE CR 30 MG TAB PO SCH (09:24)
[2017-08-16] MEDS: LISINOPRIL 10 MG TAB PO SCH (09:24)
[2017-08-16] MEDS: ENOXAPARIN SOD INJ 40 MG/0.4 ML SYR SC SCH (16:40)
[2017-08-16] MEDS: ATORVASTATIN 20 MG TAB PO SCH (21:40)
[2017-08-16] MEDS: QUETIAPINE FUMARATE 25 MG TAB PO SCH (21:40)
[2017-08-17] VITALS (8 sets, daily range): BP systolic 121–144; BP diastolic 58–87
[2017-08-17] MEDS: LORAZEPAM INJ 2 MG/ML VIAL IM PRN (00:29)
[2017-08-17] MEDS: ALBUTEROL/IPRATROPIUM 3 ML NEB NEB SCH ×4 (01:15→19:35)
[2017-08-17 04:53] LABS: BASOPHILS # (AUTO) 0.3 (0.0-0.1); BASOPHILS % 3.3 % (0.0-1.0); EOSINOPHILS # (AUTO) 0.7 (0.0-0.4); EOSINOPHILS % 7.4 % (0.0-6.0); HEMATOCRIT 37.1 % (38.2-49.6); HEMOGLOBIN 13.3 g/dL (14.0-18.0); LYMPHOCYTES # (AUTO) 2.2 (1.0-3.2); LYMPHOCYTES % 21.5 % (18.0-39.1); MEAN CORPUSCULAR HEMOGLOBIN 34.9 pg (28-32); MEAN CORPUSCULAR HGB CONC 35.8 g/dL (31-35); MEAN CORPUSCULAR VOLUME 97.4 fL (81-99); MONOCYTES # (AUTO) 1.3 (0.2-0.8); MONOCYTES % 12.8 % (4.4-11.3); NEUTROPHILS # (AUTO) 5.4 (2.1-6.9); NEUTROPHILS % 54.4 % (38.7-80.0); PLATELET COUNT 316 x10e3/uL (140-360); RED BLOOD COUNT 3.81 x10e6/uL (4.3-5.7); RED CELL DISTRIBUTION WIDTH 12.6 % (11.7-14.4)
[2017-08-17 05:14] LABS: ANION GAP 13.5 mmol/L (8-16); BLOOD UREA NITROGEN 12 mg/dL (7-26); BUN/CREATININE RATIO 10 (6-25); CALCIUM 9.9 mg/dL (8.4-10.2); CARBON DIOXIDE 26 mmol/L (22-29); CHLORIDE 95 mmol/L (98-107); CREATININE, SERUM 1.17 mg/dL (0.72-1.25); EST GLOMERULAR FILTRATION RATE > 60 ML/MIN (60-); GLUCOSE 92 mg/dL (74-118); POTASSIUM 4.5 mmol/L (3.5-5.1); SODIUM 130 mmol/L (136-145)
[2017-08-17] MEDS: BUDESONIDE/FORMOTEROL 160/4.5MCG INHALER INH SCH ×2 (07:45→19:35)
[2017-08-17 07:49] LABS: EOSINOPHILS % (MANUAL) 5 % (0-7); LYMPHOCYTES % (MANUAL) 18 % (19-48); MONOCYTES % (MANUAL) 17 % (3.4-9.0); NEUTROPHILS % (MANUAL) 59 % (40-74)
[2017-08-17 07:50] LABS: PLATELET ESTIMATE ADEQUATE; PLATELET MORPHOLOGY COMMENT NORMAL; RBC MORPHOLOGY COMMENT NORMAL
[2017-08-17] MEDS: FAMOTIDINE 20 MG TAB PO SCH ×2 (08:18→16:43)
[2017-08-17] MEDS: LORAZEPAM 0.5 MG TAB PO SCH ×2 (08:18→16:43)
[2017-08-17] MEDS: DOCUSATE SODIUM 100 MG CAP PO SCH ×2 (08:18→16:43)
[2017-08-17] MEDS: ASPIRIN 325 MG TAB EC PO SCH (08:18)
[2017-08-17] MEDS: NIFEDIPINE CR 30 MG TAB PO SCH (08:19)
[2017-08-17] MEDS: LOSARTAN POTASSIUM 100 MG TAB PO SCH (08:19)
[2017-08-17] MEDS: POLYETHYLENE GLYCOL 3350 17 GM PACK PO SCH ×2 (08:19→16:43)
[2017-08-17] MEDS: LISINOPRIL 10 MG TAB PO SCH (08:19)
[2017-08-17] MEDS: ENOXAPARIN SOD INJ 40 MG/0.4 ML SYR SC SCH (16:43)
[2017-08-17] MEDS ORDERED: TEMAZEPAM 15 MG CAP PO PRN (21:00)
[2017-08-17] MEDS: ATORVASTATIN 20 MG TAB PO SCH (22:02)
[2017-08-17] MEDS: QUETIAPINE FUMARATE 25 MG TAB PO SCH (22:02)
[2017-08-17] MEDS: CLONIDINE HCL 0.1 MG TAB PO PRN (23:58)
[2017-08-17] MEDS: ACETAMINOPHEN 325 MG TAB PO PRN (23:58)
[2017-08-18] VITALS (7 sets, daily range): BP systolic 105–169; BP diastolic 58–94
[2017-08-18] MEDS: ALBUTEROL/IPRATROPIUM 3 ML NEB NEB SCH ×4 (00:50→19:15)
[2017-08-18] MEDS: QUETIAPINE FUMARATE 25 MG TAB PO PRN (04:15)
[2017-08-18 05:42] LABS: BASOPHILS # (AUTO) 0.4 (0.0-0.1); BASOPHILS % 3.9 % (0.0-1.0); EOSINOPHILS # (AUTO) 0.8 (0.0-0.4); EOSINOPHILS % 8.3 % (0.0-6.0); HEMOGLOBIN 13.2 g/dL (14.0-18.0); LYMPHOCYTES # (AUTO) 2.2 (1.0-3.2); LYMPHOCYTES % 22.7 % (18.0-39.1); MEAN CORPUSCULAR HEMOGLOBIN 34.6 pg (28-32); MEAN CORPUSCULAR HGB CONC 34.7 g/dL (31-35); MEAN CORPUSCULAR VOLUME 99.7 fL (81-99); MONOCYTES # (AUTO) 1.3 (0.2-0.8); MONOCYTES % 13.4 % (4.4-11.3); NEUTROPHILS # (AUTO) 4.8 (2.1-6.9); NEUTROPHILS % 50.6 % (38.7-80.0); PLATELET COUNT 337 x10e3/uL (140-360); RED BLOOD COUNT 3.81 x10e6/uL (4.3-5.7); RED CELL DISTRIBUTION WIDTH 12.8 % (11.7-14.4)
[2017-08-18 06:10] LABS: BLOOD UREA NITROGEN 13 mg/dL (7-26); BUN/CREATININE RATIO 11 (6-25); CALCIUM 10.1 mg/dL (8.4-10.2); CARBON DIOXIDE 25 mmol/L (22-29); CHLORIDE 96 mmol/L (98-107); CREATININE, SERUM 1.18 mg/dL (0.72-1.25); EST GLOMERULAR FILTRATION RATE > 60 ML/MIN (60-); GLUCOSE 87 mg/dL (74-118); SODIUM 130 mmol/L (136-145)
[2017-08-18] MEDS: BUDESONIDE/FORMOTEROL 160/4.5MCG INHALER INH SCH ×2 (07:00→19:15)
[2017-08-18 07:47] LABS: EOSINOPHILS % (MANUAL) 6 % (0-7); LYMPHOCYTES % (MANUAL) 36 % (19-48); MONOCYTES % (MANUAL) 5 % (3.4-9.0); NEUTROPHILS % (MANUAL) 50 % (40-74)
[2017-08-18 07:48] LABS: ANISOCYTOSIS SLIGHT; RBC MORPHOLOGY COMMENT NORMAL
[2017-08-18 07:49] LABS: PLATELET ESTIMATE ADEQUATE; POIKILOCYTOSIS SLIGHT
[2017-08-18 07:50] LABS: PLATELET MORPHOLOGY COMMENT FEW LARGE
[2017-08-18] MEDS: ASPIRIN 325 MG TAB EC PO SCH (07:54)
[2017-08-18] MEDS: DOCUSATE SODIUM 100 MG CAP PO SCH ×2 (07:54→16:36)
[2017-08-18] MEDS: LOSARTAN POTASSIUM 100 MG TAB PO SCH (07:54)
[2017-08-18] MEDS: POLYETHYLENE GLYCOL 3350 17 GM PACK PO SCH ×2 (07:54→16:36)
[2017-08-18] MEDS: LORAZEPAM 0.5 MG TAB PO SCH ×2 (07:54→16:37)
[2017-08-18] MEDS: FAMOTIDINE 20 MG TAB PO SCH ×2 (07:54→16:38)
[2017-08-18] MEDS: LISINOPRIL 10 MG TAB PO SCH (07:55)
[2017-08-18] MEDS: NIFEDIPINE CR 30 MG TAB PO SCH (07:55)
[2017-08-18] MEDS: ENOXAPARIN SOD INJ 40 MG/0.4 ML SYR SC SCH (16:36)
[2017-08-18] MEDS: ATORVASTATIN 20 MG TAB PO SCH (20:15)
[2017-08-18] MEDS ORDERED: QUETIAPINE FUMARATE 25 MG TAB PO SCH (21:00)
[2017-08-19 00:50] VITALS: BP 167/79
[2017-08-19] MEDS: ALBUTEROL/IPRATROPIUM 3 ML NEB NEB SCH ×3 (01:10→13:00)
[2017-08-19 05:57] VITALS: BP 154/67
[2017-08-19] MEDS: BUDESONIDE/FORMOTEROL 160/4.5MCG INHALER INH SCH (06:29)
[2017-08-19 07:30] VITALS: BP 130/62
[2017-08-19] MEDS: FAMOTIDINE 20 MG TAB PO SCH ×2 (07:46→16:27)
[2017-08-19 08:00] VITALS: BP 130/62
[2017-08-19] MEDS: LOSARTAN POTASSIUM 100 MG TAB PO SCH (08:23)
[2017-08-19] MEDS: ASPIRIN 325 MG TAB EC PO SCH (08:23)
[2017-08-19] MEDS: DOCUSATE SODIUM 100 MG CAP PO SCH ×2 (08:23→17:03)
[2017-08-19] MEDS: POLYETHYLENE GLYCOL 3350 17 GM PACK PO SCH ×2 (08:24→17:00)
[2017-08-19] MEDS: NIFEDIPINE CR 30 MG TAB PO SCH (08:24)
[2017-08-19] MEDS: LISINOPRIL 10 MG TAB PO SCH (08:24)
--- NOTE | 2017-08-19 10:52 | Progress Note ---
DATE: August 18, 2017 PSYCHIATRIC PROGRESS NOTE Patient evaluated and events noted. Patient is in the room on the . He is alert, awake and oriented to situation and year. He is calm but is taking p.r.n. IM medication. Patient states that he is doing fairly okay. He denies depression or anxiety. He is not combative at this time. He denies any hallucinations. He denies any side effects of medication . As per nursing staff, patient is doing better. He is waiting for placement. ASSESSMENT: Unspecified psychosis. PLAN 1. Increase Seroquel 25 mg p.o. nightly to Seroquel 50 mg p.o. nightly. 2. Discontinue temazepam nightly p.r.n. 3. Continue with Haldol 2 mg IM q.6 h. p.r.n. 4. Ativan scheduled and p.r.n. have been discontinued. 5. Monitor for mood and agitation. 6. Supportive therapy. Dictated by: RADHA Sarkar Job#: [id number]
[2017-08-19 12:00] VITALS: BP 105/59
[2017-08-19 16:00] VITALS: BP 119/70
[2017-08-19] MEDS: ENOXAPARIN SOD INJ 40 MG/0.4 ML SYR SC SCH (17:03)
== END 2017-08-19 17:17 | DRG 65 ==
LOC: ER 08:17 → ERHOLD 12:22 → IMCU 14:02 → OBSVTOIN 08-11 09:56 → MED/SURG2 08-11 10:57
PROVIDERS: ADMIT Internal Medicine; ATTEND Internal Medicine
DX: I63.033 Cerebral infarction due to thrombosis of bilateral carotid arteries (principal); E87.1 Hypo-osmolality and hyponatremia; R53.1 Weakness; I10 Essential (primary) hypertension; R45.1 Restlessness and agitation; J44.9 Chronic obstructive pulmonary disease, unspecified; K59.00 Constipation, unspecified; F29 Unspecified psychosis not due to a substance or known physiological condition
CPT/HCPCS: 36415; 70450; 70498; 70551; 72125; 76937; 80048; 80053; 80061; 80307; 80320; 81001; 82150; 82550; 82553; 82947; 82948; 83036; 83605; 83690; 83735; 83880; 83935; 84100; 84295; 84300; 84439; 84443; 84484; 84520; 85025; 85610; 85730; 87400; 92523; 93005; 93306; 93880; 94640; 99284; G0378; J1650; J2060; J7030; Q9967